=== PATIENT | female | born 1995 | race Caucasian/White ===

== ENCOUNTER 2022-03-25 00:14 | Emergency (ER) | payer SELFPAY ==
[2022-03-25] MEDS ORDERED: Metoclopramide HCl 10 MG/2 ML VIAL ONE (00:59)
[2022-03-25] MEDS ORDERED: Magnesium 2 GM/50 ML BAG (IN WATER) ONE (00:59)
[2022-03-25] MEDS ORDERED: Ketorolac Tromethamine 30 MG/ML VIAL ONE (00:59)
[2022-03-25] MEDS ORDERED: diphenhydrAMINE 50 MG/ML VIAL ONE (00:59)
[2022-03-25] MEDS ORDERED: Acetaminophen 500 MG TAB ONE (00:59)
[2022-03-25] MEDS ORDERED: methylPREDNISolone Sod Succ/PF 125 MG/2 ML VIAL ONE (01:56)
[2022-03-25] MEDS ORDERED: SODIUM CHLORIDE 0.9% IVPB SCH (02:15)
[2022-03-25] MEDS ORDERED: VALPROATE SODIUM IVPB SCH (02:15)
== END 2022-03-25 04:15 | disposition home or self-care (01) ==
LOC: CSHERS 00:14
DX: G43.109 Migraine with aura, not intractable, without status migrainosus (principal)
CPT/HCPCS: 36416; 96365; 96366; 96367; 96375; J1200; J1885; J2765; J2930; J3475; J3490